=== PATIENT | female | born 1985 | race American Indian/Alaskan Native ===

== ENCOUNTER 2018-03-05 11:21 | Emergency (ER) | payer OTHER ==
[2018-03-05 11:47] VITALS: BP 148/90
[2018-03-05] MEDS ORDERED: NACL 0.9% 1000 ML 1,000 ML IV ONE (12:58)
[2018-03-05 13:17] LABS: Basophils # (Auto) 0.1 K/mm3 (0.0-0.1); Basophils % (Auto) 1.1 % (0.0-1.8); Eosinophils % (Auto) 0.4 % (0.0-4.3); Hematocrit 40.4 % (30.3-42.9); Hemoglobin 13.3 gm/dl (10.1-14.3); Lymphocytes # (Auto) 1.6 K/mm3 (1.2-5.4); Mean Corpuscular HGB Conc 33 % (30-34); Mean Corpuscular Hemoglobin 30 pg (28-32); Mean Corpuscular Volume 90 fl (79-97); Monocytes # (Auto) 0.5 K/mm3 (0.0-0.8); Monocytes % (Auto) 7.3 % (0.0-7.3); Platelet Count 446 K/mm3 (140-440); Red Blood Count 4.47 M/mm3 (3.65-5.03)
[2018-03-05 13:34] LABS: Bilirubin,Urine NEG (Negative); Blood,Urine NEG (Negative); Color,Urine Straw (Yellow); Protein,Urine <15 mg/dL mg/dL (Negative); RBC,Urine < 1.0 /HPF (0.0-6.0); Urobilinogen,Urine < 2.0 mg/dL (<2.0)
[2018-03-05 13:37] LABS: BUN/Creatinine Ratio 9; Blood Urea Nitrogen 6 mg/dL (7-17); Hemolysis Index 8
--- NOTE | 2018-03-05 14:40 | Cat Scan Report ---
CT HEAD WITHOUT CONTRAST: HISTORY: Headache. TECHNIQUE: Sequential 2.5mm CT images. COMPARISON: none. FINDINGS: Cerebral Parenchyma: Within normal limits. Cerebellum: Within normal limits. Brainstem: Within normal limits. Ventricles: Normal. Sella: Normal. Extra-axial spaces: Normal. Basal Cisterns: Normal. Intracranial Hemorrhage: None. Midline Shift: None. Calvarium: Normal. Sinuses: Normal. Mastoid Air Cells: Normal. Visualized Orbits: Normal. IMPRESSION: Cranial CT scan within normal limits.
--- NOTE | 2018-03-05 14:45 | Emergency Department Report ---
ED Dizziness HPI - General Chief Complaint: Dizziness Stated Complaint: DIZZY Time Seen by Provider: 03/05/18 12:49 Source: patient Mode of arrival: Ambulatory Limitations: No Limitations - History of Present Illness Initial Comments: This is a 32-year-old female nontoxic, well nourished in appearance, no acute signs of distress presents to the ED with c/o of dizziness, bilateral ear pressure, and acute headache x1 month. Patient describes headache as diffuse with level of 8 out of 10. Patient denies thunderclap headache. Patient denies any radiation of pain. Patient denies any head trauma. Patient denies any visual changes. Patient stated that this is the worse headache. Patient stated that darkness makes headache better and bright lights make the headache worse. Patient denies any syncope. Patient denies any numbness, tingling, fever, chills, nausea, vomiting, chest pain, shortness of breath, stiff neck. Patient denies any radiation of pain. Patient denies any allergies or PMH. MD Complaint: dizziness, lightheadedness, other (headache) -: month(s) (1) Timing: gradual onset Description: lightheadedness History of Same: Yes History of Trauma: No Severity: mild Improves With: other (darkness) Worsens With: other (bright lights) Associated Symptoms: denies other symptoms. denies: ataxia, chest pain, confusion, cough, diaphoresis, fever/chills, loss of appetite, malaise, rash, seizure, shortness of breath, syncope, weakness - Related Data Previous Rx's Medication Instructions Recorded Last Taken Type HYDROcodone/APAP 5-325 [[place] 1 each PO Q6HR PRN #14 tablet 11/19/13 Unknown Rx 5/325] Butalb/Acetamin/Caff 50-325-40 1 tab PO Q6HR PRN #12 tab 03/05/18 Unknown Rx [Fioricet] Allergies Allergy/AdvReac Type Severity Reaction Status Date / Time No Known Allergies Allergy Verified 03/10/13 04:07 ED Review of Systems ROS: Stated complaint: DIZZY Other details as noted in HPI Constitutional: denies: chills, fever Eyes: denies: eye pain, eye discharge, vision change ENT: ear pain. denies: throat pain Respiratory: denies: cough, shortness of breath, wheezing Cardiovascular: denies: chest pain, palpitations Endocrine: no symptoms reported Gastrointestinal: denies: abdominal pain, nausea, diarrhea Genitourinary: denies: urgency, dysuria, discharge Musculoskeletal: denies: back pain, joint swelling, arthralgia Skin: denies: rash, lesions Neurological: headache, other (dizziness). denies: weakness, paresthesias Psychiatric: denies: anxiety, depression Hematological/Lymphatic: denies: easy bleeding, easy bruising ED Past Medical Hx - Past Medical History Previous Medical History?: No - Surgical History Past Surgical History?: No - Social History Smoking Status: Never Smoker Substance Use Type: None - Medications Home Medications: Home Medications Medication Instructions Recorded Confirmed Last Taken Type HYDROcodone/APAP 5-325 [[place] 1 each PO Q6HR PRN #14 tablet 11/19/13 Unknown Rx 5/325] Butalb/Acetamin/Caff 50-325-40 1 tab PO Q6HR PRN #12 tab 03/05/18 Unknown Rx [Fioricet] ED Physical Exam - General Limitations: No Limitations General appearance: alert, in no apparent distress - Head Head exam: Present: atraumatic, normocephalic - Eye Eye exam: Present: normal appearance, PERRL, EOMI Pupils: Present: normal accommodation - ENT ENT exam: Present: normal exam, normal orophraynx, TM's normal bilaterally, normal external ear exam - Neck Neck exam: Present: normal inspection, full ROM. Absent: tenderness, meningismus, lymphadenopathy - Respiratory Respiratory exam: Present: normal lung sounds bilaterally. Absent: respiratory distress, wheezes, rales, rhonchi, stridor, chest wall tenderness, accessory muscle use, decreased breath sounds, prolonged expiratory - Cardiovascular Cardiovascular Exam: Present: regular rate, normal rhythm, normal heart sounds. Absent: bradycardia, tachycardia, irregular rhythm, systolic murmur, diastolic murmur, rubs, gallop - Extremities Exam Extremities exam: Present: normal inspection, full ROM - Back Exam Back exam: Present: normal inspection, full ROM. Absent: tenderness, paraspinal tenderness, vertebral tenderness - Neurological Exam Neurological exam: Present: alert, oriented X3, normal gait - Expanded Neurological Exam Expanded Patient oriented to: Present: person, place, time Cranial nerves: EOM's Intact: Normal, Facial Sensation: Normal Cerebellar function: Finger to Nose: Normal Upper motor neuron: Sensory Extinction: Normal Sensory exam: Upper Extremity Light Touch: Normal, Upper Extremity Pin Prick: Normal, Upper Extremity Temperature: Normal, UE 2 Point Discrimination: Normal, Lower Extremity Light Touch: Normal, Lower Extremity Pin Prick: Normal, Lower E xtremity Temperature: Normal, LE 2 Point Discrimination: Normal Motor strength exam: RUE: 5, LUE: 5, RLE: 5, LLE: 5 Best Eye Response (Kristy): (4) open spontaneously Best Motor Response (Stanton): (6) obeys commands Best Verbal Response (Kristy): (5) oriented Stanton Total: 15 - Psychiatric Psychiatric exam: Present: normal affect, normal mood - Skin Skin exam: Present: warm, dry, intact, normal color. Absent: rash ED Course Vital Signs 03/05/18 11:45 Temperature 98.9 F Pulse Rate 85 Respiratory 18 Rate Blood Pressure 148/90 O2 Sat by Pulse 99 Oximetry - Reevaluation(s) Reevaluation #1: 03/05/18 14:40 Patient is speaking in full sentences with no signs of distress noted. ED Medical Decision Making - Lab Data Result diagrams: 03/05/18 13:05 03/05/18 13:05 - Medical Decision Making This is a 32-year-old female that presents with headache and dizziness. Patient is stable and was examined by me. Patient is neurologically stable. There is no stiff neck or neck pain. Vital signs are stable. Patient is afebrile. Labs unremarkable. CT of head obtained and dictated by the radiologist unremarkable. Patient is notified of the CT results with no questions noted by the patient. Patient received 1 L of normal saline which the patient stated that headache and dizziness has subsided and resolved. Orthostatic vitals unremarkable. Patient is discharged with Fioricet. Patient was referred to Follow-up with a primary care/neurologist doctor in 3-5 days or if symptoms worsen and continue return to emergency room as soon as possible. At time of discharge, the patient does not seem toxic or ill in appearance. No acute signs of distress noted. Patient agrees to discharge treatment plan of care. No further questions noted by the patient. Critical care attestation.: If time is entered above; I have spent that time in minutes in the direct care of this critically ill patient, excluding procedure time. ED Disposition Clinical Impression: Dizziness Headache Qualifiers: Headache type: unspecified Headache chronicity pattern: acute headache Intractability: not intractable Qualified Code(s): R51 - Headache Disposition: DC-01 TO HOME OR SELFCARE Is pt being admited?: No Does the pt Need Aspirin: No Condition: Stable Instructions: Dizziness (ED), Acute Headache (ED) Additional Instructions: Follow-up with a primary care/neurologist doctor in 3-5 days or if symptoms worsen and continue return to emergency room as soon as possible. Prescriptions: Butalb/Acetamin/Caff 50-325-40 [Fioricet] 1 tab PO Q6HR PRN #12 tab PRN Reason: Headache Referrals: PRIMARY CARE, [Primary Care Provider] - 3-5 Days APOLINAR GONZALEZ MD [Staff Physician] - 3-5 Days ASH VALENZUELA MD [Staff Physician] - 3-5 Days [facility] [Outside] - 3-5 Days [facility] [place] [Outside] - 3-5 Days Forms: Work/School Release Form(ED)
== END 2018-03-05 14:58 | disposition home or self-care (01) ==
LOC: ED 11:21
DX: R42 Dizziness and giddiness (principal); R51 Headache
CPT/HCPCS: 36415; 70450; 80048; 81001; 84703; 85025; 96360; 99284; J7030

== ENCOUNTER 2019-05-05 07:48 | Observation (INO) | payer BC, OTHER ==
[2019-05-05 08:32] LABS: Basophils % (Auto) 0.5 % (0.0-1.8); Eosinophils % (Auto) 0.5 % (0.0-4.3); Lymphocytes # (Auto) 1.3 K/mm3 (1.2-5.4); Mean Corpuscular HGB Conc 33 % (30-34); Mean Corpuscular Volume 90 fl (79-97); Monocytes # (Auto) 0.4 K/mm3 (0.0-0.8); Monocytes % (Auto) 7.6 % (0.0-7.3); Platelet Count 326 K/mm3 (140-440); Red Blood Count 4.35 M/mm3 (3.65-5.03); Red Cell Distribution Width 13.9 % (13.2-15.2)
[2019-05-05 08:55] LABS: Alanine Aminotransferase 21 units/L (7-56); Albumin 3.8 g/dL (3.9-5); BUN/Creatinine Ratio 17; Blood Urea Nitrogen 10 mg/dL (7-17); Calcium 8.8 mg/dL (8.4-10.2); Hemolysis Index 6
[2019-05-05] MEDS ORDERED: SODIUM CHLORIDE 0.9% 1000 ML 1,000 ML IV ONE ×2 (09:50→12:36)
[2019-05-05] MEDS ORDERED: ONDANSETRON 4 MG/2 ML INJ IV ONE (09:50)
[2019-05-05] MEDS ORDERED: SODIUM CHLORIDE 0.9% 1000 ML 1,000 ML ONE ×2 (09:52→18:54)
--- NOTE | 2019-05-05 10:14 | Emergency Department Report ---
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 She reports no chronic medical conditions and no history of abdominal surgeries. She presents to the ER with half day to 1 day of lower abdominal pain, pulling feeling, discomfort. There is no complaint of headache, neck pain, chest pain, irritative or obstructive urinary symptoms, she denies diarrhea, she denies v aginal discharge, and she denies extremity weakness and numbness. Her pain is basically constant, increases with palpation, range of motion, and it decreases with rest and pain medication. She reports 1 sexual partner in the past couple months. MD Complaint: abdominal pain -: Gradual Location: LLQ, RLQ, suprapubic Migration to: other Quality: other Consistency: other Improves With: other Worsens With: other - Related Data Previous Rx's Medication Instructions Recorded Last Taken Type HYDROcodone/APAP 5-325 [[place] 1 each PO Q6HR PRN #14 tablet 11/19/13 Unknown Rx 5/325] Butalb/Acetamin/Caff 50-325-40 1 tab PO Q6HR PRN #12 tab 03/05/18 Unknown Rx [Fioricet] Allergies Allergy/AdvReac Type Severity Reaction Status Date / Time No Known Allergies Allergy Verified 03/10/13 04:07 ED Review of Systems ROS: Stated complaint: ABD PAIN Other details as noted in HPI Constitutional: malaise Eyes: denies: eye discharge ENT: denies: congestion Respiratory: denies: wheezing Cardiovascular: denies: syncope Gastrointestinal: abdominal pain Genitourinary: denies: dysuria Musculoskeletal: denies: back pain Neurological: weakness Psychiatric: anxiety Hematological/Lymphatic: denies: easy bleeding ED Past Medical Hx - Past Medical History Previous Medical History?: No - Surgical History Past Surgical History?: No - Social History Smoking Status: Never Smoker Substance Use Type: None - Medications Home Medications: Home Medications Medication Instructions Recorded Confirmed Last Taken Type HYDROcodone/APAP 5-325 [[place] 1 each PO Q6HR PRN #14 tablet 11/19/13 Unknown Rx 5/325] Butalb/Acetamin/Caff 50-325-40 1 tab PO Q6HR PRN #12 tab 03/05/18 Unknown Rx [Fioricet] ED Physical Exam - General Limitations: No Limitations General appearance: alert, anxious, in distress, obese - Head Head exam: Present: atraumatic, normocephalic - Eye Eye exam: Present: normal appearance, EOMI. Absent: nystagmus - ENT ENT exam: Present: normal exam, normal orophraynx, mucous membranes moist, normal external ear exam - Neck Neck exam: Present: normal inspection. Absent: tenderness, meningismus - Respiratory Respiratory exam: Present: normal lung sounds bilaterally. Absent: respiratory distress - Cardiovascular Cardiovascular Exam: Present: regular rate, normal rhythm, normal heart sounds. Absent: bradycardia, tachycardia, irregular rhythm, systolic murmur, diastolic murmur, rubs, gallop - GI/Abdominal GI/Abdominal exam: Present: soft, tenderness (There is mild diffuse lower abdom inal tenderness, without rebound, guarding or peritoneal signs). Absent: distended, guarding, rebound, rigid, pulsatile mass - External exam: Present: normal external exam. Absent: swelling, bleeding Speculum exam: Present: vaginal discharge, cervical discharge Bi-manual exam: Present: cervical motion tendernes, adnexal tenderness, other (Chaperoned by nurse Dionna Bonilla) - Extremities Exam Extremities exam: Present: normal inspection, full ROM, other (2+ pulses noted in the bilateral upper and lower extremities. There is no palpable cord. negative Homans sign. Muscular compartments are soft. The pelvis is stable.). Absent: pedal edema, calf tenderness - Back Exam Back exam: Present: normal inspection - Neurological Exam Neurological exam: Present: alert, other (There is no facial droop. The tongue is midline. Extraocular movements are intact bilaterally. There is 5 out of 5 strength in bilateral upper and lower extremities. Sensation is intact to light touch bilateral upper and lower extremities. ). Absent: motor sensory deficit - Psychiatric Psychiatric exam: Present: anxious - Skin Skin exam: Present: warm, dry, intact, normal color. Absent: rash ED Course Vital Signs 05/05/19 05/05/19 08:02 12:28 Temperature 98.1 F Pulse Rate 87 Respiratory 24 17 Rate Blood Pressure 125/74 [Right] O2 Sat by Pulse 99 98 Oximetry - Reevaluation(s) Reevaluation #1: 05/05/19 12:39 Differential diagnosis, including but not limited to: Colitis, diverticulitis, urinary tract infection, appendicitis, perforated viscus, pelvic inflammatory disease, enteritis Assessment and plan: 33-year-old female who appears to be quite uncomfortable, with lower abdominal pain, tenderness, no report of nausea to myself, diarrhea, with cervical motion tenderness and adnexal tenderness. She is afebrile with reassuring vital signs. We will treat her symptoms. CT scan abdomen pelvis, and pelvic ultrasound are pending. Based off of the pelvic examination, have a moderate to high suspicion for pelvic inflammatory disease. If objective imaging does not demonstrate alternative diagnosis, patient will be treated empirically for presumed pelvic inflammatory disease. Reevaluation #2: 05/05/19 15:02 d/w Dr Stella Dmuont, states he can follow in consultation is necessary; will defer to [facility] to pursue medical consult should they feel it necessary d/w General surgery, Dr Abbey Burnett, who can follow in consultation case presented to Dr Rivera of [facility] for further management Reevaluation #3: 05/05/19 15:10 discusss plan of care with patient, shes amenable to plan of care - Consultations Consultation #1: 05/05/19 14:45 d/w [facility] Dr Rivera; advises admission to medical service states she can follow in consultation ED Medical Decision Making - Lab Data Result diagrams: 05/05/19 08:18 05/05/19 08:18 Vital Signs 05/05/19 05/05/19 08:02 12:28 Temperature 98.1 F Pulse Rate 87 Respiratory 24 17 Rate Blood Pressure 125/74 [Right] O2 Sat by Pulse 99 98 Oximetry Lab Results 05/05/19 05/05/19 05/05/19 Range/Units 08:18 08:18 08:18 WBC 4.8 (4.5-11.0) K/mm3 RBC 4.35 (3.65-5.03) M/mm3 Hgb 13.0 (10.1-14.3) gm/dl Hct 39.0 (30.3-42.9) % MCV 90 (79-97) fl MCH 30 (28-32) pg MCHC 33 (30-34) % RDW 13.9 (13.2-15.2) % Plt Count 326 (140-440) K/mm3 Lymph % (Auto) 27.0 (13.4-35.0) % [place] % (Auto) 7.6 H (0.0-7.3) % Eos % (Auto) 0.5 (0.0-4.3) % Baso % (Auto) 0.5 (0.0-1.8) % Lymph # 1.3 (1.2-5.4) K/mm3 [place] # 0.4 (0.0-0.8) K/mm3 Eos # 0.0 (0.0-0.4) K/mm3 Baso # 0.0 (0.0-0.1) K/mm3 Seg Neutrophils % 64.4 (40.0-70.0) % Seg Neutrophils # 3.1 (1.8-7.7) K/mm3 Sodium 136 L (137-145) mmol/L Potassium 3.6 (3.6-5.0) mmol/L Chloride 102.6 (98-107) mmol/L Carbon Dioxide 19 L (22-30) mmol/L Anion Gap 18 mmol/L BUN 10 (7-17) mg/dL Creatinine 0.6 L (0.7-1.2) mg/dL Estimated GFR > 60 ml/min BUN/Creatinine Ratio 17 % Glucose 140 H (65-100) mg/dL Calcium 8.8 (8.4-10.2) mg/dL Magnesium (1.7-2.3) mg/dL Total Bilirubin 0.30 (0.1-1.2) mg/dL AST 33 (5-40) units/L ALT 21 (7-56) units/L Alkaline Phosphatase 77 (35-129) units/L Total Creatine Kinase (30-135) units/L Total Protein 7.7 (6.3-8.2) g/dL Albumin 3.8 L (3.9-5) g/dL Albumin/Globulin Ratio 1.0 % Lipase (13-60) units/L HCG, Qual Negative (Negative) Urine Color (Yellow) Urine Turbidity (Clear) Urine pH (5.0-7.0) Ur Specific [place] (1.003-1.030) Urine Protein (Negative) mg/dL Urine Glucose (UA) (Negative) mg/dL Urine Ketones (Negative) mg/dL Urine Blood (Negative) Urine Nitrite (Negative) Urine Bilirubin (Negative) Urine Urobilinogen (<2.0) mg/dL Ur Leukocyte Esterase (Negative) Urine WBC (Auto) (0.0-6.0) /HPF Urine RBC (Auto) (0.0-6.0) /HPF U Epithel Cells (Auto) (0-13.0) /HPF Urine Mucus /HPF Urine Opiates Screen Urine Methadone Screen Ur Barbiturates Screen Ur Phencyclidine Scrn Ur Amphetamines Screen U Benzodiazepines Scrn Urine Cocaine Screen U Marijuana (THC) Screen Drugs of Abuse Note 05/05/19 05/05/19 05/05/19 Range/Units 08:18 Unknown Unknown WBC (4.5-11.0) K/mm3 RBC (3.65-5.03) M/mm3 Hgb (10.1-14.3) gm/dl Hct (30.3-42.9) % MCV (79-97) fl MCH (28-32) pg MCHC (30-34) % RDW (13.2-15.2) % Plt Count (140-440) K/mm3 Lymph % (Auto) (13.4-35.0) % [place] % (Auto) (0.0-7.3) % Eos % (Auto) (0.0-4.3) % Baso % (Auto) (0.0-1.8) % Lymph # (1.2-5.4) K/mm3 [place] # (0.0-0.8) K/mm3 Eos # (0.0-0.4) K/mm3 Baso # (0.0-0.1) K/mm3 Seg Neutrophils % (40.0-70.0) % Seg Neutrophils # (1.8-7.7) K/mm3 Sodium (137-145) mmol/L Potassium (3.6-5.0) mmol/L Chloride (98-107) mmol/L Carbon Dioxide (22-30) mmol/L Anion Gap mmol/L BUN (7-17) mg/dL Creatinine (0.7-1.2) mg/dL Estimated GFR ml/min BUN/Creatinine Ratio % Glucose (65-100) mg/dL Calcium (8.4-10.2) mg/dL Magnesium 1.80 (1.7-2.3) mg/dL Total Bilirubin (0.1-1.2) mg/dL AST (5-40) units/L ALT (7-56) units/L Alkaline Phosphatase (35-129) units/L Total Creatine Kinase 1043 H (30-135) units/L Total Protein (6.3-8.2) g/dL Albumin (3.9-5) g/dL Albumin/Globulin Ratio % Lipase 20 (13-60) units/L HCG, Qual (Negative) Urine Color Yellow (Yellow) Urine Turbidity Slightly-cloudy (Clear) Urine pH 8.0 H (5.0-7.0) Ur Specific [place] 1.021 (1.003-1.030) Urine Protein <15 mg/dl (Negative) mg/dL Urine Glucose (UA) Neg (Negative) mg/dL Urine Ketones Neg (Negative) mg/dL Urine Blood Neg (Negative) Urine Nitrite Neg (Negative) Urine Bilirubin Neg (Negative) Urine Urobilinogen < 2.0 (<2.0) mg/dL Ur Leukocyte Esterase Neg (Negative) Urine WBC (Auto) 1.0 (0.0-6.0) /HPF Urine RBC (Auto) 3.0 (0.0-6.0) /HPF U Epithel Cells (Auto) 5.0 (0-13.0) /HPF Urine Mucus Few /HPF Urine Opiates Screen Presumptive negative Urine Methadone Screen Presumptive negative Ur Barbiturates Screen Presumptive negative Ur Phencyclidine Scrn Presumptive negative Ur Amphetamines Screen Presumptive negative U Benzodiazepines Scrn Presumptive negative Urine Cocaine Screen Presumptive negative U Marijuana (THC) Screen Presumptive negative Drugs of Abuse Note Disclamer - EKG Data -: EKG Interpreted by Ut EKG shows normal: sinus rhythm Rate: normal - EKG Data When compared to previous EKG there are: previous EKG unavailable 05/05/19 12:40 There is no prior EKG available for comparison. Sinus rhythm, 73 bpm, normal axis, the QTC is 451 ms, there is high left ventricular voltage, motion xiomara fact. No prior for comparison, not a STEMI - Radiology Data Radiology results: pending, report reviewed, image reviewed Print Report Referring Physician: MARY SIM Patient Name: ELGIN GLORIA Date of : 1985 Sex: Female Report Date: 2019-05-05 Report Status: Finalized Findings [facility] [address] [place] [address] Ultrasound Report Signed Patient: ELGIN GLORIA MR#: [id number] 1 : 1985 Acct:[id number] Age/Sex: 33 / F ADM Date: 05/05/19 Loc: ED Attending Dr: Ordering Physician: MARY SIM MD Date of Service: 05/05/19 Procedure(s): US pelvis duplex doppler comp Accession Number(s): [id number] cc: MARY SIM MD TRANSABDOMINAL PELVIC AND TRANSVAGINAL ULTRASOUND HISTORY: lower abd pain. Negative urine test. COMPARISON: None. TECHNIQUE: Routine transabdominal and transvaginal pelvic ultrasound performed. FINDINGS: T RANSABDOMINAL PELVIC ULTRASOUND: Uterus: Suboptimally imaged due to inadequate distention of the urinary bladder. Endometrium: Appears thickened. Right Ovary: Normal size, blood flow and appearance measuring it measures 4.2 x 1.8 x 4.9 cm. Left Ovary: Not well imaged. Additional findings: Transvaginal exam was performed for better delineation of the endometrium and ovaries. TRANSVAGINAL PELVIC ULTRASOUND: Uterus: At least 1 posterior intramural uterine fibroid in the uterine body measures 3.4 x 3.3 x 3.1 cm. The main portion of the uterus measures 10.1 x 4.6 x 5.0 cm. There is a questionable uterine fibroid projecting posteriorly into the cul-de-sac and measuring 6.1 x 3.4 x 5.0 cm. This is labeled as an ovary but does not correlate with the structure that is better imaged and measured as the ovary on the transabdominal exam. Endometrium: Thickened and diffusely echogenic measuring 24.7 mm. Right Ovary: Not confidently imaged. Left Ovary: Not confidently imaged. Additional findings: Mi ld free pelvic fluid with diffuse internal echoes within the fluid. IMPRESSION: 1. Uterine leiomyomata and suboptimal imaging of the uterus on both transabdominal and transvaginal imaging. 2. Normal secretory endometrium. 3.Normal right ovary. 4. A left ovary is not confidently identified. 5. Mild echogenic pelvic fluid is of uncertain etiology but hemoperitoneum is a consideration. Signer Name: Apolinar Nguyen MD Signed: 05/05/2019 1:53 PM Workstation Name: [id number] Transcribed By: REF Dictated By: APOLINAR NGUYEN MD Electronically Authenticated By: APOLINAR NGUYEN MD Signed Date/Ti me: 05/05/19 1353 Print Report Referring Physician: MARY SIM Patient Name: ELGIN GLORIA Date of : 1985 Sex: Female Report Date: 2019-05-05 Report Status: Finalized Findings [facility] [address] [place] [address] Cat Scan Report Signed Patient: ELGIN GLORIA MR#: [id number] 1 : 1985 Acct:[id number] Age/Sex: 33 / F ADM Date: 05/05/19 Loc: ED Attending Dr: Order ing Physician: MARY SIM MD Date of Service: 05/05/19 Procedure(s): CT abdomen pelvis w con Accession Number(s): [id number] cc: MARY SIM MD CT ABDOMEN AND PELVIS WITH CONTRAST HISTORY: abd pain n/v. COMPARISON: Pelvic ultrasound from today TECHNIQUE: CT images of the abdomen and pelvis were obtained following administration of intravenous contrast. All CT scans at this location are performed using CT dose reduction for ALARA by means of automated exposure control. CONTRAST: 100 ml of intravenous contrast administered. FINDINGS: Lungs/bones: There is minimal groundglass nodular density in the right lung base as seen on image #16 of series #2. No acute osseous abnormality or significant degenerative change within the spine. Abdomen/pelvis: The liver, gallbladder, spleen, pancreas, adrenals, kidneys, and proximal GI tract appear unremarkable. No pathologic peritoneal or retroperitoneal adenopathy. Urinary bladder is unremarkable. No acute colonic abnormality identified. The terminal ileum is normal. I do not identify the appendix; however, there is no pericecal inflammatory change. The uterus is quite heterogeneous in attenuation and there are surrounding fluid attenuation structures as well as intermediate attenuation trace fluid within the pelvis which tracks up the right cul-de-sac. There is also a tubular-appearing structure which is fluid-filled in the right adnexal region. This latter finding can be seen with blood products or simply proteinaceous products in general. IMPRESSION: 1. Abnormal appearance of the reproductive organs as outlined above could be seen in the setting of pelvic inflammatory disease possibly with hydrosalpinx involving the right fallopian tube since there is a tubular fluid attenuation structure. Superimposed small volume free fluid in the abdomen and pelvis is also noted and could be seen with infectious/inflammatory process or recent hemorrhagic cyst rupture. The latter finding is considered less likely since the ovaries otherwise appear unremarkable. Signer Name: Tima Herrera MD Signed: 05/05/2019 2:37 PM Workstation Name: [id number] Transcribed By: TARA Dictated By: Tima Herrera MD Electronically Authenticated By: Tima Herrera MD Signed Date/Time: 05/05/19 1437 DD/ 1429 Critical care attestation.: If time is entered above; I have spent that time in minutes in the direct care of this critically ill patient, excluding procedure time. ED Disposition Clinical Impression: PID (acute pelvic inflammatory disease), Lower abdominal pain Disposition: DC-09 OP ADMIT IP TO THIS HOSP Is pt being admited?: Yes Condition: Good Instructions: Abdominal Pain (ED) Referrals: PRIMARY CARE, [Primary Care Provider] - 3-5 Days
[2019-05-05] MEDS ORDERED: MORPHINE 4 MG/1 ML INJ IV ONE (10:43)
[2019-05-05 11:00] LABS: Bilirubin,Urine NEG (Negative); Blood,Urine NEG (Negative); Color,Urine Yellow (Yellow); Mucus,Urine FEW /HPF; Protein,Urine <15 mg/dL mg/dL (Negative); Urobilinogen,Urine < 2.0 mg/dL (<2.0)
[2019-05-05 11:19] LABS: Amphetamine Screen,Urine PRESUMPTIVE NEGATIVE; Benzodiazepines Screen,Urine PRESUMPTIVE NEGATIVE; Cannabinoid Screen,Urine PRESUMPTIVE NEGATIVE; Cocaine Screen,Urine PRESUMPTIVE NEGATIVE; Methadone Screen,Urine PRESUMPTIVE NEGATIVE; Opiate Screen,Urine PRESUMPTIVE NEGATIVE
[2019-05-05] MEDS ORDERED: HYDROmorphone 1 MG/1 ML INJ IV ONE (13:11)
--- NOTE | 2019-05-05 13:57 | Ultrasound Report ---
TRANSABDOMINAL PELVIC AND TRANSVAGINAL ULTRASOUND HISTORY: lower abd pain. Negative urine test. COMPARISON: None. TECHNIQUE: Routine transabdominal and transvaginal pelvic ultrasound performed. FINDINGS: TRANSABDOMINAL PELVIC ULTRASOUND: Uterus: Suboptimally imaged due to inadequate distention of the urinary bladder. Endometrium: Appears thickened. Right Ovary: Normal size, blood flow and appearance measuring it measures 4.2 x 1.8 x 4.9 cm. Left Ovary: Not well imaged. Additional findings: Transvaginal exam was performed for better delineation of the endometrium and ov omega. TRANSVAGINAL PELVIC ULTRASOUND: Uterus: At least 1 posterior intramural uterine fibroid in the uterine body measures 3.4 x 3.3 x 3.1 cm. The main portion of the uterus measures 10.1 x 4.6 x 5.0 cm. There is a questionable uterine fib roid projecting posteriorly into the cul-de-sac and measuring 6.1 x 3.4 x 5.0 cm. This is labeled as an ovary but does not correlate with the structure that is better imaged and measured as the ovary on the transabdominal exam. Endometrium: Thickened and diffusely echogenic measuring 24.7 mm. Right Ovary: Not confidently imaged. Left Ovary: Not confidently imaged. Additional findings: Mild free pelvic fluid with diffuse internal echoes within the fluid. IMPRESSION: 1. Uterine leiomyomata and suboptimal imaging of the uterus on both transabdominal and transvaginal i maging. 2. Normal secretory endometrium. 3.Normal right ovary. 4. A left ovary is not confidently identified. 5. Mild echogenic pelvic fluid is of uncertain etiology but hemoperitoneum is a consideration. Signer Name: Oz Jenkins MD Signed: 05/05/2019 1:53 PM Workstation Name: [id number]
[2019-05-05] MEDS ORDERED: GENTAMICIN/NS 120MG/100ML 120 MG/100 ML BAG IV STA (14:37)
--- NOTE | 2019-05-05 14:41 | Cat Scan Report ---
CT ABDOMEN AND PELVIS WITH CONTRAST HISTORY: abd pain n/v. COMPARISON: Pelvic ultrasound from today TECHNIQUE: CT images of the abdomen and pelvis were obtained following administration of intravenous contrast. All CT scans at this location are performed using CT dose reduction for ALARA by means of automated exposure control. CONTRAST: 100 ml of intravenous contrast administered. FINDINGS: Lungs/bones: There is minimal groundglass nodular density in the right lung base as seen on image #1 6 of series #2. No acute osseous abnormality or significant degenerative change within the spine. Abdomen/pelvis: The liver, gallbladder, spleen, pancreas, adrenals, kidneys, and proximal GI tract a ppear unremarkable. No pathologic peritoneal or retroperitoneal adenopathy. Urinary bladder is unremarkable. No acute colonic abnormality identified. The terminal ileum is ynes l. I do not identify the appendix; however, there is no pericecal inflammatory change. The uterus is quite heterogeneous in attenuation and there are surrounding fluid attenuation structur es as well as intermediate attenuation trace fluid within the pelvis which tracks up the right cul-de -sac. There is also a tubular-appearing structure which is fluid-filled in the right adnexal region. This latter finding can be seen with blood products or simply proteinaceous products in general. IMPRESSION: 1. Abnormal appearance of the reproductive organs as outlined above could be seen in the setting of p elvic inflammatory disease possibly with hydrosalpinx involving the right fallopian tube since there is a tubular fluid attenuation structure. Superimposed small volume free fluid in the abdomen and pel vis is also noted and could be seen with infectious/inflammatory process or recent hemorrhagic cyst r upture. The latter finding is considered less likely since the ovaries otherwise appear unremarkable. Signer Name: Tima Herrera MD Signed: 05/05/2019 2:37 PM Workstation Name: [id number]
[2019-05-05] MEDS ORDERED: AMPICILLIN/NS 1 GM/50 ML 1 GM/50 ML BAG IV ONE (15:00)
--- NOTE | 2019-05-05 19:35 | History and Physical Report ---
History of Present Illness Date of examination: 05/05/19 Date of admission: 05/05/19 15:13 Chief complaint: abdominal pain History of present illness: 33yo presented to ER complaining of diffuse abdominal pain. She states this weekend she drank green tea, had 6 bowel movements then experienced severe abdominal pain. She ate pasta udayredro from [employer], cereal with milk and rice within 24 hours of taking the tea and states the excruciating pain began after that time. She denies any vaginal bleeding, nausea and vomiting. Her last sexual intercourse was in February which she attributes to her being in [place]. She denies any history of sexually transmitted diseases. Her US reveals uterine fibroids to which she was not aware of. Non-specific pelvic exam, WBC 4 and low grade fever is not suggestive of pelvic inflammatory disease therefore antibiotics were discontinued. Past History Family/Genetic History: none Social history: - Obstetrical History : 2 Number of Living Children: 1 Medications and Allergies Allergies Allergy/AdvReac Type Severity Reaction Status Date / Time No Known Allergies Allergy Verified 03/10/13 04:07 Home Medications Medication Instructions Recorded Confirmed Last Taken Type HYDROcodone/APAP 5-325 [[place] 1 each PO Q6HR PRN #14 tablet 11/19/13 Unknown Rx 5/325] Butalb/Acetamin/Caff 50-325-40 1 tab PO Q6HR PRN #12 tab 03/05/18 Unknown Rx [Fioricet] Review of Systems Gastrointestinal: abdominal pain, change in bowel habits - Vital Signs Vital signs: Vital Signs Temp Pulse Resp BP Pulse Ox 98.1 F 87 24 125/74 99 05/05/19 08:02 05/05/19 08:02 05/05/19 08:02 05/05/19 08:02 05/05/19 08:02 Temp Pulse Resp BP Pulse Ox 99.1 F 91 H 18 135/77 100 05/05/19 18:11 05/05/19 18:11 05/05/19 18:11 05/05/19 18:11 05/05/19 18:11 - Physical Exam Abdomen: Positive: soft, tenderness, other (NO REBOUND, NO GUARDING. Obese) Genitourinary (Female): Positive: normal external genitalia Adnexa: both: normal Extremities: Positive: normal Results Result Diagrams: 05/05/19 08:18 05/05/19 08:18 Abnormal lab results 05/05/19 05/05/19 05/05/19 Range/Units 08:18 08:18 08:18 [place] % (Auto) 7.6 H (0.0-7.3) % Sodium 136 L (137-145) mmol/L Carbon Dioxide 19 L (22-30) mmol/L Creatinine 0.6 L (0.7-1.2) mg/dL Glucose 140 H (65-100) mg/dL Total Creatine Kinase 1043 H (30-135) units/L Albumin 3.8 L (3.9-5) g/dL Urine pH (5.0-7.0) 05/05/19 Range/Units Unknown [place] % (Auto) (0.0-7.3) % Sodium (137-145) mmol/L Carbon Dioxide (22-30) mmol/L Creatinine (0.7-1.2) mg/dL Glucose (65-100) mg/dL Total Creatine Kinase (30-135) units/L Albumin (3.9-5) g/dL Urine pH 8.0 H (5.0-7.0) All other labs normal. Assessment and Plan - Patient Problems (1) Gastroenteritis Current Visit: Yes Status: Acute Plan to address problem: Abdominal pain- Gastroenteritis -Based on history and clinical exam likely diagnosis. Recommend probiotics, non-dairy, non-lactose diet and cessation of herbal green tea. Ruptured hemorrhagic cyst - less likely but any hemoperitoneum is self-limited and will be reabsorbed. Hgb 13, no signs of anemia. Uterine fibroid - possible cause of abdominal pain but less likely in the acute setting of pain. PID - unlikely based on clinical exam, labs and patient history. Pain control- Toradol and Tylenol #3 ordered. Plan to discharge home on PO pain meds. Counseled patient on above findings and follow-up outpatient if worsening of symptoms. Made recommendations on supportive care for gastroenteritis.
[2019-05-05] MEDS: ACETAMINOPHEN W/CODEINE 300-30 MG TAB PO PRN (20:47)
[2019-05-05] MEDS ORDERED: KETOROLAC 30 MG/1 ML INJ IV SCH (21:00)
[2019-05-06] MEDS: ACETAMINOPHEN W/CODEINE 300-30 MG TAB PO PRN ×3 (00:49→15:55)
--- NOTE | 2019-05-06 02:47 | Discharge Summary ---
Providers - Providers Date of Admission: 05/05/19 15:13 Date of discharge: 05/06/19 Attending physician: RG BARRY 05/05/19 14:43 Consult to Physician [CONS] Urgent Comment: DR RONEY HOLDEN W/DR BARRY @[id number] Consulting Provider: RG BARRY Physician Instructions: Reason For Exam: abd pain ? hemoperitoneum 05/05/19 14:49 Consult to Physician [CONS] Urgent Comment: DR RONEY HOLDEN W/DR OCHOA @[id number] Consulting Provider: SHERRELL OCHOA Physician Instructions: Reason For Exam: abd pain Primary care physician: VENETIAN BLIND INSTALLER Hospitalization Condition at discharge: Stable Disposition: DC-01 TO HOME OR SELFCARE - Discharge Diagnoses (1) Gastroenteritis Status: Acute Comment: Patient treated with anti-emetics and pain medicine. Discharged home within 24hrs. Recommend not taking herbal tea over the counter. Avoid dairy products. Plan - Discharge Medications Prescriptions: HYDROcodone/APAP 5-325 [Matheson 5-325 mg TAB] 1 each PO Q6HR PRN 10 Days #20 tablet PRN Reason: Pain Ondansetron HCl [Zofran] 4 mg PO Q8HR PRN 10 Days #30 tablet PRN Reason: Nausea - Provider Discharge Summary Additional instructions: [] Smoking cessation referral if applicable(refer to patient education folder for contact #) [] Refer to [facility]'s [facility] Booklet Call your doctor immediately for: * Fever > 100.5 * Heavy vaginal bleeding ( >1 pad per hour) * Severe persistent headache * Shortness of breath * Reddened, hot, painful area to leg or breast * Drainage or odor from incision. * Keep incision clean and dry at all times and follow doctor's instructions regarding bathing/showering - Follow up plan Follow up: PRIMARY CARE, [Primary Care Provider] - 3-5 Days RG BARRY MD [Staff Physician] - 7 Days Forms: Accompanied Note, [facility] Discharge Summary
--- NOTE | 2019-05-06 08:14 | Event Note ---
S: Patient feels abdominal discomfort when getting out of bed. Ambulated hospital floor with patient without any difficulty. No vomiting. She states she feels occasional nausea. She has tolerated fluids. O: Afebrile. Vitals stable GEN: NAD, AOX23 Abd: nontender A Gastroenteritis Uterine leiomoyoma P Continue pain control. Anti-emetics for nausea Discharge home today with PO pain/nausea medicine. Patient has appointment with new doctor at [facility] today. Patient will f/u in my office within one week or for worsening of symptoms.
--- NOTE | 2019-05-06 14:51 | Progress Note ---
Assessment and Plan Full Consult Dictated: 33 y/o female c/o lower abd pain. CT reviewed with radiologist. Enlarged uterus with surrounding inflammatory changes. probable hydrosalpynx also. pelvic fluid. r/o PID r/o TOA. ER physician also mentioned significant cervical tenderness on exam. Abd - soft. but generalized mild tenderness. increased in lower abd and suprapubic area. imp r/o PID r/o TOA rec: NPO IVF IV antibiotics (though wbc wnl) observation no general surgical intervention appears indicated at this time. History of Present Illness Date of examination: 05/05/19 Date of admission: 05/05/19 15:13 Chief complaint: abdominal pain History of present illness: 33yo presented to ER complaining of diffuse abdominal pain. She states this weekend she drank green tea, had 6 bowel movements then experienced severe abdominal pain. She ate pasta alfredro from [employer], cereal with milk and rice within 24 hours of taking the tea and states the excruciating pain began after that time. She denies any vaginal bleeding, nausea and vomiting. Her last sexual intercourse was in February which she attributes to her being in [place]. She denies any history of sexually transmitted diseases. Her US reveals uterine fibroids to which she was not aware of. Non-specific pelvic exam, WBC 4 and low grade fever is not suggestive of pelvic inflammatory disease therefore antibiotics were discontinued. Past History Family/Genetic History: none Social history: - Obstetrical History : 2 Number of Living Children: 1 Selected Entries 05/06/19 11:31 Temperature 99.2 F Pulse Rate 80 Respiratory 16 Rate Blood Pressure 130/77 Laboratory Tests 05/05/19 08:18 WBC 4.8 Hgb 13.0 Hct 39.0 Objective Vital Signs - 12hr 05/06/19 05/06/19 05/06/19 04:48 04:49 05:26 Temperature 98.5 F Pulse Rate 77 Respiratory 20 18 Rate Blood Pressure 106/45 Blood Pressure 132/60 [Right] O2 Sat by Pulse 98 Oximetry 05/06/19 05/06/19 07:25 11:31 Temperature 98.5 F 99.2 F Pulse Rate 77 80 Respiratory 16 16 Rate Blood Pressure 117/62 130/77 Blood Pressure [Right] O2 Sat by Pulse 97 99 Oximetry - Labs 05/05/19 08:18 05/05/19 08:18
--- NOTE | 2019-05-06 15:22 | Consultation ---
REASON FOR CONSULTATION: Abdominal pain. HISTORY OF PRESENT ILLNESS: The patient is a pleasant 33-year-old female who presented to the Emergency Room with a chief complaint of lower abdominal pain accompanied by nausea, but no vomiting. Denies any vaginal discharge. Had some fever recently. Denies any dysuria. PAST MEDICAL HISTORY: Negative. PAST SURGICAL HISTORY: Negative. ALLERGIES: No known allergies. MEDICATIONS: No medications. FAMILY HISTORY: Hypertension and diabetes. SOCIAL HISTORY: Denies any smoking or drinking. PHYSICAL EXAMINATION: GENERAL: At this time reveals the patient to be awake, alert, cooperative. States she is feeling " but still complaining of nonspecific generalized lower abdominal pain. VITAL SIGNS: Show her to be running a low-grade temperature of 99.5, blood pressure 130/77, pulse of 80, respirations 16. HEENT: Pupils are equal and reactive to light and accommodation. Sclerae are nonicteric. ABDOMEN: Examination of the abdomen reveals to be moderately obese. There is some mild generalized abdominal pain, but more so localized in the lower abdomen as well as the suprapubic region. Negative CVA tenderness. Bowel sounds are present. LABORATORY DATA: Lab work at present includes a CBC, which shows a white count of 4.8, H and H is 13 and 39. Electrolytes are essentially within normal limits. Lipase is normal at 20. test is negative. LFTs show normal bilirubin of 0.3, AST is 33, ALT is 77. The total creatine kinase is elevated at 1043. A CT scan of the abdomen and pelvis as well as a pelvic ultrasound have been performed, which I have reviewed with the radiologist. The CT shows some inflammatory changes around the uterus as well as possible right hydrosalpinx. Some pelvic fluid is also noted. This inflammatory process and findings appear to be consistent with possible PID. The transvaginal pelvic ultrasound again confirms some mild echogenic pelvic fluid, uncertain etiology as well as uterine fibroid. IMPRESSION: At this time is that of a healthy 33-year-old female with lower abdominal pain and inflammation around the uterus and tubes. Rule out PID, rule out tubo-ovarian abscess. I had spoken with the ER physician at the time of her admission and he stated that the patient did elicit significant cervical tenderness on pelvic exam. RECOMMENDATIONS: At this time would be to keep the patient n.p.o. at present since she began experiencing nausea once she attempted to eat this morning. I would start her on IV fluids and keep her n.p.o. We would also consider IV antibiotics and close observation. I will follow with you. Thank you very much for consultation. JOB# [id number] ADELIA/MAREN
[2019-05-06 16:54] VITALS: BP 123/69
== END 2019-05-06 16:30 | disposition home or self-care (01) ==
LOC: ED 07:48 → OB 15:13
PROVIDERS: ADMIT Obstetrics & Gynecology; ATTEND Obstetrics & Gynecology
DX: K52.9 Noninfective gastroenteritis and colitis, unspecified (principal); N73.9 Female pelvic inflammatory disease, unspecified; R10.30 Lower abdominal pain, unspecified
CPT/HCPCS: 36415; 74177; 76830; 80053; 80307; 81001; 82140; 82550; 83690; 83735; 84703; 85025; 87040; 87210; 87591; 93005; 93010; 93975; 96365; 96367; 96375; 99285; G0378; J0290; J1170; J1580; J2270; J2405; J7030; Q9967

== ENCOUNTER 2019-05-09 17:46 | Emergency (ER) | payer BC ==
--- NOTE | 2019-05-09 18:54 | Event Note ---
ED Screening Note Date of service: 05/09/19 Time: 18:49 ED Screening Note: Pt complains of elevated BP and diffuse muscle spasms home BP 190/130 recently started on nifedipine for BP HR in 130s-denies SP or SOB +right calf pain muscle spasms are chronic per pt This initial assessment/diagnostic orders/clinical plan/treatment(s) is/are subject to change based on patients health status, clinical progression and re- assessment by fellow clinical providers in the ED. Further treatment and workup at subsequent clinical providers discretion. Patient/guardian urged not to elope from the ED as their condition may be serious if not clinically assessed and managed. Initial orders include: labs US
[2019-05-09 19:40] LABS: Basophils # (Auto) 0.1 K/mm3 (0.0-0.1); Basophils % (Auto) 0.8 % (0.0-1.8); Eosinophils % (Auto) 0.4 % (0.0-4.3); Hematocrit 37.9 % (30.3-42.9); Hemoglobin 12.5 gm/dl (10.1-14.3); Lymphocytes # (Auto) 1.3 K/mm3 (1.2-5.4); Lymphocytes % (Auto) 16.6 % (13.4-35.0); Mean Corpuscular HGB Conc 33 % (30-34); Mean Corpuscular Volume 91 fl (79-97); Monocytes # (Auto) 0.8 K/mm3 (0.0-0.8); Monocytes % (Auto) 9.9 % (0.0-7.3); Platelet Count 385 K/mm3 (140-440); Red Blood Count 4.17 M/mm3 (3.65-5.03); Red Cell Distribution Width 13.8 % (13.2-15.2)
[2019-05-09 19:57] LABS: Alanine Aminotransferase 15 units/L (7-56); Albumin 3.8 g/dL (3.9-5); BUN/Creatinine Ratio 9; Blood Urea Nitrogen 6 mg/dL (7-17); Calcium 9.5 mg/dL (8.4-10.2); Hemolysis Index 73
[2019-05-09] MEDS ORDERED: KETOROLAC 60 MG/2 ML INJ IM ONE (20:59)
--- NOTE | 2019-05-09 21:20 | Ultrasound Report ---
EXAMINATION: Nonobstetrical complete pelvic ultrasound CLINICAL INFORMATION: Pelvic pain. COMPARISON: CT of the abdomen and pelvis, 05/05/2019. Pelvic ultrasound, 05/05/2019 FINDINGS: The uterus is upper limits of normal in size measuring 8.9 x 5.4 x 6.1 cm. Again a diffusely heteroge neous appearance of the uterus is again noted, similar to the previous study. The endometrium is mild ly thickened to a maximum thickness of 1.2 cm. The right adnexal region demonstrates no definitive abnormality. Doppler flow is demonstrated to the right adnexal region. The left adnexa is not well-visualized. A moderate amount of complex free pelvic fluid is again noted. IMPRESSION: 1. Moderate amount of complex free fluid which overall appears similar to the previous ultrasound. Co nsiderations would include hemoperitoneum as previously described. 2. Mildly enlarged heterogeneous uterus which may be secondary to the presence of multiple uterine fi broids. Signer Name: Nica Lopez MD Signed: 05/09/2019 9:16 PM Workstation Name: [id number]
[2019-05-09 21:58] LABS: HCG Qualitative,Urine Negative (Negative)
[2019-05-09 22:01] LABS: Bacteria,Urine 1+ /HPF (Negative); Bilirubin,Urine NEG (Negative); Blood,Urine LG (Negative); Color,Urine Yellow (Yellow); Mucus,Urine FEW /HPF; Protein,Urine <15 mg/dL mg/dL (Negative); Urobilinogen,Urine < 2.0 mg/dL (<2.0)
--- NOTE | 2019-05-09 23:04 | Emergency Department Report ---
ED Abdominal Pain HPI - General Chief Complaint: Abdominal Pain Stated Complaint: LOWER ABD PAIN LEG PAIN CONSTIPATION Time Seen by Provider: 05/09/19 19:53 Source: patient Mode of arrival: Ambulatory Limitations: No Limitations - History of Present Illness Initial Comments: Patient is a 33-year-old F Lithuanian female who states she has had abdominal pain for approximately a week. Patient was admitted from the for presumed PID secondary to the patient having pelvic pain on physical exam however ultrasound showed she had some inflammation around the uterus however her wet prep showed very few white cells and her white count was normal making PID less likely according to the CHECK SERVICES CLERK. Patient was discharged with a diagnosis of gastroenteritis. Patient is to follow-up with her primary care physician or CHECK SERVICES CLERK. Patient states she is continued to have lower abdominal pain. She states initially was diffuse however is now suprapubic only. She has had some constipation for the last several days. Although the patient states when she we nt to ultrasound today she did have a bowel movement. Patient denies dysuria urinary frequency. She does have some vaginal bleeding but she is on her menses currently. Severity scale (0 -10): 7 - Related Data Previous Rx's Medication Instructions Recorded Last Taken Type HYDROcodone/APAP 5-325 [Mallory 1 each PO Q6HR PRN #14 tablet 11/19/13 Unknown Rx 5/325] Butalb/Acetamin/Caff 50-325-40 1 tab PO Q6HR PRN #12 tab 03/05/18 Unknown Rx [Fioricet] HYDROcodone/APAP 5-325 [Mallory 1 each PO Q6HR PRN 10 Days #20 05/06/19 Unknown Rx 5-325 mg TAB] tablet Ondansetron HCl [Zofran] 4 mg PO Q8HR PRN 10 Days #30 tablet 05/06/19 Unknown Rx Ibuprofen [Motrin 800 MG tab] 800 mg PO Q8HR PRN #14 tablet 05/09/19 Unknown Rx Nitrofurantoin [place]/M-Cryst 100 mg PO Q12HR #14 capsule 05/09/19 Unknown Rx [Macrobid CAP] medroxyPROGESTERone ACETATE 5 mg PO QDAY #7 tablet 05/09/19 Unknown Rx [Provera] traMADoL [Ultram] 50 mg PO Q6HR PRN #12 tablet 05/09/19 Unknown Rx Allergies Allergy/AdvReac Type Severity Reaction Status Date / Time No Known Allergies Allergy Verified 03/10/13 04:07 ED Review of Systems ROS: Stated complaint: LOWER ABD PAIN LEG PAIN CONSTIPATION Other details as noted in HPI Comment: All other systems reviewed and negative ED Past Medical Hx - Past Medical History Previous Medical History?: No - Surgical History Past Surgical History?: No - Social History Smoking Status: Never Smoker Substance Use Type: None - Medications Home Medications: Home Medications Medication Instructions Recorded Confirmed Last Taken Type HYDROcodone/APAP 5-325 [Mallory 1 each PO Q6HR PRN #14 tablet 11/19/13 Unknown Rx 5/325] Butalb/Acetamin/Caff 50-325-40 1 tab PO Q6HR PRN #12 tab 03/05/18 Unknown Rx [Fioricet] HYDROcodone/APAP 5-325 [Mallory 1 each PO Q6HR PRN 10 Days #20 05/06/19 Unknown Rx 5-325 mg TAB] tablet Ondansetron HCl [Zofran] 4 mg PO Q8HR PRN 10 Days #30 tablet 05/06/19 Unknown Rx Ibuprofen [Motrin 800 MG tab] 800 mg PO Q8HR PRN #14 tablet 05/09/19 Unknown Rx Nitrofurantoin [place]/M-Cryst 100 mg PO Q12HR #14 capsule 05/09/19 Unknown Rx [Macrobid CAP] medroxyPROGESTERone ACETATE 5 mg PO QDAY #7 tablet 05/09/19 Unknown Rx [Provera] traMADoL [Ultram] 50 mg PO Q6HR PRN #12 tablet 05/09/19 Unknown Rx ED Physical Exam - General Limitations: No Limitations General appearance: alert, in no apparent distress - Head Head exam: Present: atraumatic, normocephalic - Eye Eye exam: Present: normal appearance, PERRL, EOMI - ENT ENT exam: Present: mucous membranes moist - Neck Neck exam: Present: normal inspection - Respiratory Respiratory exam: Present: normal lung sounds bilaterally. Absent: respiratory distress, wheezes, rales, rhonchi - Cardiovascular Cardiovascular Exam: Present: regular rate, normal rhythm, normal heart sounds. Absent: systolic murmur, diastolic murmur, rubs, gallop - GI/Abdominal GI/Abdominal exam: Present: soft, tenderness (suprapubic), normal bowel sounds. Absent: distended, guarding, rebound, rigid - Extremities Exam Extremities exam: Present: normal inspection - Back Exam Back exam: Present: normal inspection - Neurological Exam Neurological exam: Present: alert, oriented X3 - Psychiatric Psychiatric exam: Present: normal affect, normal mood - Skin Skin exam: Present: warm, dry, intact, normal color. Absent: rash ED Course Vital Signs 05/09/19 05/09/19 05/09/19 18:56 20:15 21:00 Temperature 99.1 F Pulse Rate 97 H 102 H Respiratory 18 18 18 Rate Blood Pressure 112/52 Blood Pressure 138/77 [Left] O2 Sat by Pulse 100 100 Oximetry ED Medical Decision Making - Lab Data Result diagrams: 05/09/19 19:06 05/09/19 19:06 Lab Results 05/09/19 05/09/19 05/09/19 Range/Units 19:06 19:06 19:06 WBC 7.9 (4.5-11.0) K/mm3 RBC 4.17 (3.65-5.03) M/mm3 Hgb 12.5 (10.1-14.3) gm/dl Hct 37.9 (30.3-42.9) % MCV 91 (79-97) fl MCH 30 (28-32) pg MCHC 33 (30-34) % RDW 13.8 (13.2-15.2) % Plt Count 385 (140-440) K/mm3 Lymph % (Auto) 16.6 (13.4-35.0) % [place] % (Auto) 9.9 H (0.0-7.3) % Eos % (Auto) 0.4 (0.0-4.3) % Baso % (Auto) 0.8 (0.0-1.8) % Lymph # 1.3 (1.2-5.4) K/mm3 [place] # 0.8 (0.0-0.8) K/mm3 Eos # 0.0 (0.0-0.4) K/mm3 Baso # 0.1 (0.0-0.1) K/mm3 Seg Neutrophils % 72.3 H (40.0-70.0) % Seg Neutrophils # 5.7 (1.8-7.7) K/mm3 Sodium 134 L (137-145) mmol/L Potassium 4.4 D (3.6-5.0) mmol/L Chloride 97.7 L (98-107) mmol/L Carbon Dioxide 22 (22-30) mmol/L Anion Gap 19 mmol/L BUN 6 L (7-17) mg/dL Creatinine 0.7 (0.7-1.2) mg/dL Estimated GFR > 60 ml/min BUN/Creatinine Ratio 9 % Glucose 102 H (65-100) mg/dL Calcium 9.5 (8.4-10.2) mg/dL Total Bilirubin 0.40 (0.1-1.2) mg/dL AST 23 (5-40) units/L ALT 15 (7-56) units/L Alkaline Phosphatase 71 (35-129) units/L Total Protein 8.2 (6.3-8.2) g/dL Albumin 3.8 L (3.9-5) g/dL Albumin/Globulin Ratio 0.9 % Lipase 28 (13-60) units/L Urine Color (Yellow) Urine Turbidity (Clear) Urine pH (5.0-7.0) Ur Specific [place] (1.003-1.030) Urine Protein (Negative) mg/dL Urine Glucose (UA) (Negative) mg/dL Urine Ketones (Negative) mg/dL Urine Blood (Negative) Urine Nitrite (Negative) Ur Reducing Substances Urine Bilirubin (Negative) Urine Ictotest Urine Urobilinogen (<2.0) mg/dL Ur Leukocyte Esterase (Negative) Urine WBC (Auto) (0.0-6.0) /HPF Urine RBC (Auto) (0.0-6.0) /HPF U Epithel Cells (Auto) (0-13.0) /HPF Urine Bacteria (Auto) (Negative) /HPF Urine Mucus /HPF Urine HCG, Qual (Negative) 05/09/19 Range/Units 21:36 WBC (4.5-11.0) K/mm3 RBC (3.65-5.03) M/mm3 Hgb (10.1-14.3) gm/dl Hct (30.3-42.9) % MCV (79-97) fl MCH (28-32) pg MCHC (30-34) % RDW (13.2-15.2) % Plt Count (140-440) K/mm3 Lymph % (Auto) (13.4-35.0) % [place] % (Auto) (0.0-7.3) % Eos % (Auto) (0.0-4.3) % Baso % (Auto) (0.0-1.8) % Lymph # (1.2-5.4) K/mm3 [place] # (0.0-0.8) K/mm3 Eos # (0.0-0.4) K/mm3 Baso # (0.0-0.1) K/mm3 Seg Neutrophils % (40.0-70.0) % Seg Neutrophils # (1.8-7.7) K/mm3 Sodium (137-145) mmol/L Potassium (3.6-5.0) mmol/L Chloride (98-107) mmol/L Carbon Dioxide (22-30) mmol/L Anion Gap mmol/L BUN (7-17) mg/dL Creatinine (0.7-1.2) mg/dL Estimated GFR ml/min BUN/Creatinine Ratio % Glucose (65-100) mg/dL Calcium (8.4-10.2) mg/dL Total Bilirubin (0.1-1.2) mg/dL AST (5-40) units/L ALT (7-56) units/L Alkaline Phosphatase (35-129) units/L Total Protein (6.3-8.2) g/dL Albumin (3.9-5) g/dL Albumin/Globulin Ratio % Lipase (13-60) units/L Urine Color Yellow (Yellow) Urine Turbidity Slightly-cloudy (Clear) Urine pH 6.0 (5.0-7.0) Ur Specific [place] 1.012 (1.003-1.030) Urine Protein <15 mg/dl (Negative) mg/dL Urine Glucose (UA) Neg (Negative) mg/dL Urine Ketones Neg (Negative) mg/dL Urine Blood Lg (Negative) Urine Nitrite Neg (Negative) Ur Reducing Substances Not Reportable Urine Bilirubin Neg (Negative) Urine Ictotest Not Reportable Urine Urobilinogen < 2.0 (<2.0) mg/dL Ur Leukocyte Esterase Mod (Negative) Urine WBC (Auto) 20.0 H (0.0-6.0) /HPF Urine RBC (Auto) 165.0 (0.0-6.0) /HPF U Epithel Cells (Auto) 5.0 (0-13.0) /HPF Urine Bacteria (Auto) 1+ (Negative) /HPF Urine Mucus Few /HPF Urine HCG, Qual Negative (Negative) - Radiology Data [facility] [address] [place] [address] Ultrasound Report Signed Patient: ELGIN GLORIA MR#: [id number] 1 : 1985 Acct:[id number] Age/Sex: 33 / F ADM Date: 05/09/19 Loc: ED Attending Dr: Ordering Physician: LAKISHA QUESADA Date of Service: 05/09/19 Procedure(s): US transvaginal Accession Number(s): [id number] cc: LAKISHA QUESADA EXAMINATION: Nonobstetrical complete pelvic ultrasound CLINICAL INFORMATION: Pelvic pain. COMPARISON: CT of the abdomen and pelvis, 05/05/2019. Pelvic ultrasound, 05/05/2019 FINDINGS: The uterus is upper limits of normal in size measuring 8.9 x 5.4 x 6.1 cm. Again a diffusely heterogeneous appearance of the uterus is again noted, similar to the previous study. The endome trium is mildly thickened to a maximum thickness of 1.2 cm. The right adnexal region demonstrates no definitive abnormality. Doppler flow is demonstrated to the right adnexal region. The left adnexa is not well-visualized. A moderate amount of complex free pelvic fluid is again noted. IMPRESSION: 1. Moderate amount of complex free fluid which overall appears similar to the previous ultrasound. Considerations would include hemoperitoneum as previously described. 2. Mildly enlarged heterogeneous uterus which may be secondary to the presence of multiple uterine fibroids. Signer Name: Nica Lopez MD Signed: 05/09/2019 9:16 PM Workstation Name: [id number] Transcribed By: OPAL Dictated By: Nica Lopez MD Electronically Authenticated By: Nica Lopez MD Signed Date/Time: 05/09/192115 - Medical Decision Making Patient is a 33-year-old F Lithuanian female who now is having just suprapubic pain although her urine does show signs of a urinary tract infection the patient also likely has endometriosis. She is continued to have what appears to be blood in the lower abdominal pelvis On her ultrasounds. Patient continues to have a normal white blood cell count. Patient to be started on Macrobid for the UTI as well as Provera she will be discharged to follow-up with her CHECK SERVICES CLERK. Critical care attestation.: If time is entered above; I have spent that time in minutes in the direct care of this critically ill patient, excluding procedure time. ED Disposition Clinical Impression: UTI (urinary tract infection), Endometriosis Disposition: TO HOME OR SELFCARE Is pt being admited?: No Does the pt Need Aspirin: No Condition: Stable Instructions: Abdominal Pain (ED) Additional Instructions: You have continued to have some free fluid in the pelvis that appears to be blood. Please have your CHECK SERVICES CLERK evaluate you for admit endometriosis Referrals: RG BARRY MD [Staff Physician] - 3-5 Days Time of Disposition: 23:06
[2019-05-09 23:20] VITALS: BP 133/84
== END 2019-05-09 23:21 | disposition home or self-care (01) ==
LOC: ED 17:46
DX: N39.0 Urinary tract infection, site not specified (principal); N80.9 Endometriosis, unspecified; M79.606 Pain in leg, unspecified; Z79.899 Other long term (current) drug therapy
CPT/HCPCS: 36415; 76830; 80053; 81001; 81025; 83690; 85025; 87086; 96372; 99284; J1885

== ENCOUNTER 2021-02-16 01:17 | Emergency (ER) | payer BC ==
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
[2021-02-16 02:28] LABS: Basophils % (Auto) 0.7 % (0.0-1.8); Eosinophils # (Auto) 0.1 K/mm3 (0.0-0.4); Hemoglobin 12.6 gm/dl (10.1-14.3); Lymphocytes # (Auto) 1.4 K/mm3 (1.2-5.4); Lymphocytes % (Auto) 25.5 % (13.4-35.0); Mean Corpuscular HGB Conc 32 % (30-34); Mean Corpuscular Volume 93 fl (79-97); Monocytes # (Auto) 0.6 K/mm3 (0.0-0.8); Monocytes % (Auto) 10.5 % (0.0-7.3); Platelet Count 325 K/mm3 (140-440); Red Blood Count 4.19 M/mm3 (3.65-5.03); Red Cell Distribution Width 13.4 % (13.2-15.2)
[2021-02-16 02:52] LABS: Alanine Aminotransferase 28 units/L (7-56); Albumin 3.8 g/dL (3.9-5); BUN/Creatinine Ratio 16; Blood Urea Nitrogen 13 mg/dL (7-17); Calcium 8.4 mg/dL (8.4-10.2); Hemolysis Index 4
--- NOTE | 2021-02-16 03:52 | Cat Scan Report ---
CT HEAD WITHOUT CONTRAST INDICATION / CLINICAL INFORMATION: Lightheadedness, dizziness, weakness, LEFT hand shaking. TECHNIQUE: All CT scans at this location are performed using CT dose reduction for ALARA by means of automated exposure control. COMPARISON: None available. FINDINGS: BRAIN PARENCHYMA: No acute intracranial hemorrhage. No evidence of recent infarct. No mass effect or midline shift. VENTRICULAR SYSTEM/EXTRA-AXIAL SPACES: Ventricles are normal for age. No extra-axial fluid collection . ORBITS: Normal as visualized. SKELETAL SYSTEM/SOFT TISSUES: Normal bones and soft tissues. PARANASAL SINUSES/MASTOID AIR CELLS: No significant abnormality. ADDITIONAL FINDINGS: None. IMPRESSION: 1. No acute intracranial abnormality. Signer Name: Bryson Muñoz MD Signed: 02/16/2021 3:48 AM Workstation Name: [id number]
[2021-02-16 04:02] VITALS: BP 114/70
--- NOTE | 2021-02-16 12:59 | Electrocardiograph Report ---
[facility] Test Date: 2021-02-16 Test Time: 02:37:47 Pat Name: ELGIN GLORIA Department: Room: Gender: F Piston Maker: NURSE : 1985 Requested By: GERRY GUZMAN Order Number: [id number] Reading MD: Renetta Garcia Measurements Intervals [place] Rate: 74 P: 69 OK: 156 QRS: 57 QRSD: 88 T: 21 QT: 396 QTc: 442 Interpretive Statements Sinus rhythm Left atrial enlargement No previous ECG available for comparison Electronically Signed On 02-16-2021 12:59:34 EST by Renetta Garcia
== END 2021-02-16 04:53 | disposition home or self-care (01) ==
LOC: ED 01:17
DX: G43.009 Migraine without aura, not intractable, without status migrainosus (principal)
CPT/HCPCS: 36415; 70450; 80053; 84703; 85025; 93005; 99284

== ENCOUNTER 2021-04-30 09:10 | Emergency (ER) | payer BC ==
[2021-04-30 11:10] VITALS: BP 137/78
[2021-04-30] MEDS ORDERED: ONDANSETRON 4 MG ODT TAB PO ONE (11:25)
[2021-04-30] MEDS ORDERED: ACETAMINOPHEN 500 MG TAB PO ONE (11:26)
--- NOTE | 2021-04-30 11:29 | Emergency Department Report ---
ED Female HPI - General Chief complaint: Dizziness Stated complaint: HEADACHE/DIZZY/ABD PAIN Time Seen by Provider: 04/30/21 11:18 Source: patient Mode of arrival: Ambulatory Limitations: No Limitations - History of Present Illness Initial comments: Chief complaint: Abdominal pain HPI: This 35-year-old female with history of uterine fibroid who presents with lower pelvic pain for several days. No vaginal bleeding. Her LMP January 11. In February her physician diagnosed her with . Moderate in severity. Gradual onset. She also has mild left-sided headache. MD Complaint: pelvic pain -: Gradual, days(s) (Several days) Severity: moderate Severity scale (0 -10): 7 Quality: cramping Consistency: constant Improves with: none Worsens with: none Are you Now?: Yes Last Menstrual Period: 01/11/21 EDC: 10/18/21 Associated Symptoms: headaches - Related Data Previous Rx's Medication Instructions Recorded Last Taken Type HYDROcodone/APAP 5-325 [[place] 1 each PO Q6HR PRN #14 tablet 11/19/13 Unknown Rx 5/325] Butalb/Acetamin/Caff 50-325-40 1 tab PO Q6HR PRN #12 tab 03/05/18 Unknown Rx [Fioricet] HYDROcodone/APAP 5-325 [[place] 1 each PO Q6HR PRN 10 Days #20 05/06/19 Unknown Rx 5-325 mg TAB] tablet ondansetron HCL [Zofran] 4 mg PO Q8HR PRN 10 Days #30 tablet 05/06/19 Unknown Rx Ibuprofen [Motrin 800 MG tab] 800 mg PO Q8HR PRN #14 tablet 05/09/19 Unknown Rx Nitrofurantoin [place]/M-Cryst 100 mg PO Q12HR #14 capsule 05/09/19 Unknown Rx [Macrobid CAP] medroxyPROGESTERone ACETATE 5 mg PO QDAY #7 tablet 05/09/19 Unknown Rx [Provera] traMADoL [Ultram] 50 mg PO Q6HR PRN #12 tablet 05/09/19 Unknown Rx Ondansetron [Zofran Odt] 4 mg PO Q8HR PRN #20 tab.rapdis 04/30/21 Unknown Rx Allergies Allergy/AdvReac Type Severity Reaction Status Date / Time No Known Allergies Allergy Verified 03/10/13 04:07 ED Review of Systems ROS: Stated complaint: HEADACHE/DIZZY/ABD PAIN Other details as noted in HPI Comment: All other systems reviewed and negative Constitutional: denies: chills, fever, malaise Respiratory: denies: cough, shortness of breath Cardiovascular: denies: chest pain Gastrointestinal: abdominal pain. denies: nausea, vomiting Neurological: headache ED Past Medical Hx - Past Medical History Previous Medical History?: Yes Additional medical history: Uterine fibroid - Surgical History Past Surgical History?: No - Social History Smoking Status: Never Smoker Substance Use Type: None - Medications Home Medications: Home Medications Medication Instructions Recorded Confirmed Last Taken Type HYDROcodone/APAP 5-325 [[place] 1 each PO Q6HR PRN #14 tablet 11/19/13 Unknown Rx 5/325] Butalb/Acetamin/Caff 50-325-40 1 tab PO Q6HR PRN #12 tab 03/05/18 Unknown Rx [Fioricet] HYDROcodone/APAP 5-325 [[place] 1 each PO Q6HR PRN 10 Days #20 05/06/19 Unknown Rx 5-325 mg TAB] tablet ondansetron HCL [Zofran] 4 mg PO Q8HR PRN 10 Days #30 tablet 05/06/19 Unknown Rx Ibuprofen [Motrin 800 MG tab] 800 mg PO Q8HR PRN #14 tablet 05/09/19 Unknown Rx Nitrofurantoin [place]/M-Cryst 100 mg PO Q12HR #14 capsule 05/09/19 Unknown Rx [Macrobid CAP] medroxyPROGESTERone ACETATE 5 mg PO QDAY #7 tablet 05/09/19 Unknown Rx [Provera] traMADoL [Ultram] 50 mg PO Q6HR PRN #12 tablet 05/09/19 Unknown Rx Ondansetron [Zofran Odt] 4 mg PO Q8HR PRN #20 tab.rapdis 04/30/21 Unknown Rx ED Physical Exam - General Limitations: No Limitations General appearance: alert, in no apparent distress - Head Head exam: Present: atraumatic, normocephalic - Eye Eye exam: Present: normal appearance - ENT ENT exam: Present: mucous membranes moist - Neck Neck exam: Present: normal inspection, full ROM - Respiratory Respiratory exam: Present: normal lung sounds bilaterally. Absent: respiratory distress, wheezes, rales, rhonchi - Cardiovascular Cardiovascular Exam: Present: regular rate, normal rhythm, normal heart sounds. Absent: systolic murmur, diastolic murmur, rubs, gallop - GI/Abdominal GI/Abdominal exam: Present: soft, normal bowel sounds. Absent: distended, tenderness, guarding, rebound - Extremities Exam Extremities exam: Present: normal inspection - Neurological Exam Neurological exam: Present: alert, oriented X3 - Psychiatric Psychiatric exam: Present: normal affect, normal mood - Skin Skin exam: Present: warm, dry, intact, normal color. Absent: rash ED Course Vital Signs 04/30/21 11:07 Temperature 98 F Pulse Rate 76 Respiratory 16 Rate Blood Pressure 137/78 [Left] O2 Sat by Pulse 96 Oximetry ED Medical Decision Making - Lab Data Result diagrams: 04/30/21 11:32 04/30/21 11:32 - Radiology Data Radiology results: report reviewed Patient Name: ELGIN GLORIA Gender: Female Date of : 1985 Referring Provider: GERRY GUZMAN Organization: [facility] Accession Number: [id number] Requested Date: April 30, 2021 11:26 Report Status: Final Requested Procedure: 1 Procedure Description: US OB <= 14 weeks fetus Modality: US Findings Reporting MD: Senthil Puente Dictation Time: April 30, 2021 12:52 Terrazzo Mechanic Helper: Not available Service Tech/Welder Date: OBSTETRIC ULTRASOUND INDICATION: pelvic pain COMPARISON: No prior relevant imaging studies are available for comparison. TECHNIQUE: Transabdominal imaging was performed. FINDINGS: Single viable intrauterine is identified. lie: Cephalic. Heart rate: 162 bpm. measurements are as follows: Biparietal diameter 2.4 cm, 14 weeks 0 days Head circumference 9.2 cm, 14 weeks 1 day Abdominal circumference 7.6 cm, 14 weeks 0 days Femur length 1.3 cm, 13 weeks 6 days There is a grade 0 anterior, low-lying placenta. Subjectively, amniotic fluid appears decreased. There is mild heterogeneity lower endometrium which is nonspecific. CONCLUSION: 1. Single viable intrauterine currently in cephalic position with sonographic gestational age of 14 weeks 0 days. 2. Subjectively, amniotic fluid appears decreased. Short-term sonographic follow-up is recommended in approximately 6 weeks. 3. Anterior placenta appears somewhat low lying. This could also be readdressed in approximately 6 weeks. 4. Mild heterogeneity in the lower uterine segment endometrium is nonspecific and could be related to technical factors. Signer Name: Senthil Puente MD Signed: 04/30/2021 12:52 PM Workstation Name: [id number] - Medical Decision Making 1. Abdominal pain in without indication of ectopic or appendicitis. Patient given reassurance. Suspect mild ligament pain of . 2. Tension headache: No red flags such as sudden onset, significant severity, neurological findings. Recommended Tylenol. Prescribe Zofran for morning sickness. Critical care attestation.: If time is entered above; I have spent that time in minutes in the direct care of this critically ill patient, excluding procedure time. ED Disposition Clinical Impression: Abdominal pain affecting , Round ligament pain, Tension headache Disposition: 01 HOME / SELF CARE / HOMELESS Is pt being admited?: No Does the pt Need Aspirin: No Condition: Stable Instructions: Round Ligament Pain, Abdominal Pain During , [id number] Prescriptions: Ondansetron [Zofran Odt] 4 mg PO Q8HR PRN #20 tab.rapdis PRN Reason: Nausea Referrals: PRIMARY CARE, [Primary Care Provider] - 3-5 Days NABILA MALONE MD [Staff Physician] - 3-5 Days
[2021-04-30 11:44] LABS: Basophils % (Auto) 0.9 % (0.0-1.8); Eosinophils % (Auto) 0.7 % (0.0-4.3); Hematocrit 38.2 % (30.3-42.9); Hemoglobin 12.5 gm/dl (10.1-14.3); Lymphocytes # (Auto) 1.4 K/mm3 (1.2-5.4); Lymphocytes % (Auto) 27.3 % (13.4-35.0); Mean Corpuscular HGB Conc 33 % (30-34); Mean Corpuscular Volume 91 fl (79-97); Monocytes # (Auto) 0.4 K/mm3 (0.0-0.8); Monocytes % (Auto) 8.4 % (0.0-7.3); Platelet Count 335 K/mm3 (140-440); Red Blood Count 4.18 M/mm3 (3.65-5.03); Red Cell Distribution Width 13.4 % (13.2-15.2)
[2021-04-30 12:01] LABS: Blood Urea Nitrogen 5 mg/dL (7-17); Calcium 9.2 mg/dL (8.4-10.2); Hemolysis Index 37
[2021-04-30 12:03] LABS: BUN/Creatinine Ratio 10
--- NOTE | 2021-04-30 13:56 | Ultrasound Report ---
OBSTETRIC ULTRASOUND INDICATION: pelvic pain COMPARISON: No prior relevant imaging studies are available for comparison. TECHNIQUE: Transabdominal imaging was performed. FINDINGS: Single viable intrauterine is identified. lie: Cephalic. Heart rate: 162 bpm. measurements are as follows: Biparietal diameter 2.4 cm, 14 weeks 0 days Head circumference 9.2 cm, 14 weeks 1 day Abdominal circumference 7.6 cm, 14 weeks 0 days Femur length 1.3 cm, 13 weeks 6 days There is a grade 0 anterior, low-lying placenta. Subjectively, amniotic fluid appears decreased. There is mild heterogeneity lower endometrium which is nonspecific. CONCLUSION: 1. Single viable intrauterine currently in cephalic position with sonographic gestational a ge of 14 weeks 0 days. 2. Subjectively, amniotic fluid appears decreased. Short-term sonographic follow-up is recommended in approximately 6 weeks. 3. Anterior placenta appears somewhat low lying. This could also be readdressed in approximately 6 we eks. 4. Mild heterogeneity in the lower uterine segment endometrium is nonspecific and could be related to technical factors. Signer Name: Senthil Puente MD Signed: 04/30/2021 1:52 PM Workstation Name: [email or web address]
== END 2021-04-30 15:05 | disposition home or self-care (01) ==
LOC: ED 09:10
DX: O26.892 Other specified pregnancy related conditions, second trimester (principal); R10.9 Unspecified abdominal pain; G44.209 Tension-type headache, unspecified, not intractable; Z3A.14 14 weeks gestation of pregnancy
CPT/HCPCS: 36415; 76801; 80048; 84702; 85025; 99284; J3490; Q0162